=== PATIENT | female | born 1960 | race Two or more races ===

== ENCOUNTER 2019-04-11 12:06 | Emergency (ER) | payer OTHER ==
[~2019-04-11] VITALS: Ht 157.5 cm; Wt 72.6 kg
[2019-04-11] MEDS ORDERED: NKM (12:19)
--- NOTE | 2019-04-11 12:25 | NUR ---
ED Nurse Note: Patient wheeled to ER c/o of right hip pain. Per patient the pain started when she tried to pickling solution maker things on the floor and felt that she twisted her back. Patient denies falling on the floor or any history of fall. Patient complained of constant aching to pinching pain on her right hip of pain scale of 10/10. She stated that shes has difficulty stepping on the affected limb and having trouble walking.
--- NOTE | 2019-04-11 12:29 | NUR ---
ED Nurse Note: Jerry
--- NOTE | 2019-04-11 12:29 | NUR ---
Tiesha noland in [facility] - 04/11/19 at 1229 by MABLE LUIS Masters Note: Jerry
[2019-04-11 12:35] VITALS: BP 140/86
--- NOTE | 2019-04-11 13:03 | Emergency Room Report ---
History of Present Illness General Chief Complaint: Pain Source: Patient Present Illness HPI 59-year-old female presents to the emergency department complaining of acute onset of 10 out of 10 severity right lower back/right hip pain upon reaching to pick something up. Patient denies trauma or fall she denies previous injury to the next extremity. Patient reports this is the third episode of pain like this this year. Patient denies previous evaluation. She denies numbness or tingling she reports electrical sharp shooting sensation radiates from the right low back down into the right hip. Patient reports standing, ambulating or sitting for too long will exacerbate her symptoms. Patient denies midline back pain she denies urinary incontinence, urinary retention, saddle anesthesia , recent spinal procedures or history of cancer. No other aggravating or relieving factors. Allergies: Coded Allergies: IBUPROFEN (Verified Allergy, Unknown, 04/11/19) NAPROXEN (Verified Allergy, Unknown, 04/11/19) Patient History Past Medical History: see triage record Past Surgical History: none Pertinent Family History: none Now: No Immunizations: UTD Reviewed Nursing Documentation: PMH: Agreed; PSxH: Agreed Nursing Documentation-PMH Past Medical History: No History, Except For Review of Systems All Other Systems: negative except mentioned in HPI Physical Exam Vital Signs Date Time Temp Pulse Resp B/P (MAP) Pulse Ox O2 Delivery O2 Flow Rate FiO2 04/11/19 12:16 98.8 77 16 145/83 (103) 98 Room Air Sp02 EP Interpretation: reviewed, normal General Appearance: no apparent distress, alert, GCS 15, non-toxic Head: normocephalic, atraumatic Eyes: bilateral eye normal inspection, bilateral eye PERRL ENT: hearing grossly normal, normal voice Neck: full range of motion Respiratory: lungs clear, normal breath sounds, speaking full sentences Cardiovascular #1: regular rate, rhythm, normal capillary refill Cardiovascular #2: 2+ dorsalis pedis (R), 2+ dorsalis pedis (L) Gastrointestinal: non tender, soft Rectal: deferred Genitourinary: normal inspection, no CVA tenderness Musculoskeletal: back normal, normal range of motion, tender - Right-sided Paraspinal and upper gluteal TTP, FROM with exacerbation of pain temporarily in certain flexed positions, no LE weakness, pt. is NVI, no erythema, midline bony ttp, step-offs or obvious deformity. NO lateral right hip ttp. Pain with passive ROM of the Right hip joint. Neurologic: alert, oriented x3, responsive, motor strength/tone normal, sensory intact, speech normal, grossly normal Psychiatric: judgement/insight normal Lymphatic: no adenopathy Medical Decision Making PA Attestation Dr. Luke Is my supervising Physician whom patient management has been discussed with. Diagnostic Impression: Primary Impression: Right sciatic nerve pain ER Course 59-year-old female presents to the emergency department complaining of acute onset of 10 out of 10 severity right lower back/right hip pain upon reaching to pick something up. Patient denies trauma or fall she denies previous injury to the next extremity. Patient reports this is the third episode of pain like this this year. Patient denies previous evaluation. She denies numbness or tingling she reports electrical sharp shooting sensation radiates from the right low back down into the right hip. Patient reports standing, ambulating or sitting for too long will exacerbate her symptoms. Patient denies midline back pain she denies urinary incontinence, urinary retention, saddle anesthesia , recent spinal procedures or history of cancer. No other aggravating or relieving factors. Ddx considered but are not limited to Fracture, dislocation, contusion, epidural abscess, Sprain/Strain/Spasm, dissection, sciatica just to name a few. Vital signs: are WNL, pt. is afebrile H&PE are most consistent with right sided sciatica ORDERS: X-ray right Hip 2 views : WNL ED INTERVENTIONS: -Robaxin -Lidocaine TP -Tylenol PO Re-Evaluation: pt. states his pain has subsided with ED interventions DISCHARGE: At this time pt. is stable for d/c to home. Will provide printed patient care instructions, and any necessary prescriptions. Care plan and follow up instructions have been discussed with the patient prior to discharge. Other X-Ray Diagnostic Results Other X-Ray Diagnostic Results : X-Ray ordered: Right Hip # of Views/Limited Vs Complete: 2 View Indication: Pain EP Interpretation: Yes PA Xray: Interpretation reviewed, by supervising MD, and agrees with findings. Interpretation: no dislocation, no soft tissue swelling, no fractures Electronically Signed by: Xochilt Segal PA-C Last Vital Signs Date Time Temp Pulse Resp B/P (MAP) Pulse Ox O2 Delivery O2 Flow Rate FiO2 04/11/19 12:35 98.2 17 140/86 99 Room Air 04/11/19 12:16 77 Disposition: HOME, SELF-CARE Condition: Stable Scripts Lidocaine Patch* (Lidoderm Patch*) 1 Each Adh..patch 1 PATCH TOPIC DAILY, #30 PATCH 0 Refills Patch(es) may remain in place for up to 12 hours in any 24-hour period. Prov: Xochilt Segal 04/11/19 Methocarbamol* (ROBAXIN-750*) 750 Mg Tablet 750 MG PO QID, #28 TAB 0 Refills Prov: Xochilt Segal 04/11/19 Acetaminophen With Codeine (T#3) (TYLENOL #3 TAB*) Y Tab 1 TAB ORAL Q6H PRN for Breakthrough Pain, #9 TAB Prov: Xochilt Segal 04/11/19 Patient Instructions: Sciatica, [id number] Additional Instructions: Take medications as directed. Follow up with a Primary Care Provider in 3-5 days, even if your symptoms have resolved. --Please review list of primary care clinics, if you do not already have a primary care provider Return sooner to ED if new symptoms occur, or current symptoms become worse. Do not drink alcohol, drive, or operate heavy machinery while taking Robaxin ( Muscle Relaxers) as this may cause drowsiness. - Please note that this Emergency Department Report was dictated using [employer] lay out worker technology software, occasionally this can lead to erroneous entry secondary to interpretation by the dictation equipment. Xochilt Segal Apr 11, 2019 13:03
[2019-04-11] MEDS ORDERED: Tylenol #3 tab (300mg/30mg) ORAL ONE (13:15)
[2019-04-11] MEDS ORDERED: Methocarbamol 750mg tab ORAL ONE (13:15)
[2019-04-11] MEDS ORDERED: ROBAXIN-750750 MG PO ×2 (13:24→13:58)
[2019-04-11] MEDS ORDERED: ACETAMINOPHEN-1 EAC1 ORAL (13:24)
[2019-04-11] MEDS ORDERED: LIDODERM700 M1 TOPIC ×2 (13:24→13:58)
--- NOTE | 2019-04-11 13:25 | NUR ---
ED Nurse Note: returned from radiology, meds given for pain
--- NOTE | 2019-04-11 13:50 | Diagnostic Imaging Report ---
Indication: Left hip pain Technique: 2 views of the left hip, one view of the pelvis Comparison: none Findings: No acute fractures. No dislocations. The joint spaces are preserved Impression: Negative
--- NOTE | 2019-04-11 14:14 | NUR ---
ER DISCHARGE NOTE: Patient is cleared to be discharged per ERMD, pt is aox4, on room air, with stable vital signs. pt was given dc and prescription instructions, pt was able to verbalize understanding, pt id band removed. pt is able to ambulate with steady gait. pt took all belongings.
[2019-04-11 14:15] VITALS: BP 130/84
== END 2019-04-11 14:14 | disposition home or self-care (01) ==
LOC: EMR 12:45
DX: M54.41 Lumbago with sciatica, right side (principal); Z88.8 Allergy status to other drugs, medicaments and biological substances
CPT/HCPCS: 73502; 99283